=== PATIENT | male | born 1955 | race Hispanic/Latino ===

== ENCOUNTER 2017-05-18 10:23 | Inpatient (IN) | payer MEDICARE ==
[~2017-05-18] VITALS: Ht 172.7 cm; Wt 80.7 kg
[~2017-05-18 10:23] MED LIST: CHOL200074 PO; FOLI0.8T7 PO; GLIM4TAB3 PO; SEVE800T7 PO
[2017-05-18 10:45] LABS: BASOPHILS % (AUTO) 0.5 % (0.0-5.0); EOSINOPHILS % (AUTO) 0.1 % (0.0-8.0); HEMATOCRIT 27.5 % (42-54); LYMPHOCYTES % (AUTO) 2.9 % (21.0-51.0); MEAN CORPUSCULAR HGB CONC 33.3 g/dL (32.0-36.0); MEAN CORPUSCULAR VOLUME 102.2 fL (79-99); MONOCYTES % (AUTO) 4.3 % (3.0-13.0); NEUTROPHILS % (AUTO) 92.2 % (40.0-77.0); NUCLEATED RED BLOOD CELLS 0.1 % (0.0-0.19); PLATELET COUNT (AUTO) 240 K/uL (130-400); RED BLOOD CELL COUNT(AUTO) 2.69 MIL/uL (4.50-6.20); RED CELL DISTRIBUTION WIDTH 20.3 % (11.0-15.5); WHITE BLOOD COUNT (AUTO) 10.8 K/uL (4.8-10.8)
[2017-05-18 11:09] LABS: ALBUMIN 3.3 g/dL (3.5-5.0); BILIRUBIN,TOTAL 0.5 mg/dL (0.2-1.0); CREATINE KINASE MB 2.2 ng/mL (0.5-3.6); TOTAL PROTEIN, SERUM 7.1 g/dL (6.0-8.3)
[2017-05-18 11:18] LABS: CREATININE 8.3 mg/dL (0.5-1.5)
[2017-05-18] MEDS ORDERED: LEVOFLOXACIN 500 MG/D5W 100 ML 100 ML ONE (11:21)
[2017-05-18] MEDS ORDERED: IPRATROPIUM/ALBUTEROL SULFATE 3 ML SOLUTION IH ONE (11:32)
[2017-05-18 12:03] LABS: B-TYPE NATRIURETIC PEPTIDE 1570 pg/mL (0-100)
[2017-05-18 12:16] LABS: INR 1.02 (0.85-1.15); PARTIAL THROMBOPLASTIN TIME 21.5 SEC (26.3-35.5); PROTHROMBIN TIME 10.7 SEC (9.6-11.6)
[2017-05-18] MEDS ORDERED: METHYLPREDNISOLONE SOD SUCC 40MG/ML 1ML ONE (13:26)
[2017-05-18] MEDS ORDERED: CEFTRIAXONE SODIUM 1 GM ONE (13:26)
[2017-05-18 14:03] LABS: ABG BASE EXCESS -3.3 mmol/L (-2.0-3.0); ABG HCO3 24.2 mmol/L (21.0-28.0); ABG PCO2 53 mmHg (35-48)
[2017-05-18 14:15] VITALS: BP 133/76
[2017-05-18] MEDS ORDERED: CARV3.12 PO (14:16)
[2017-05-18] MEDS ORDERED: AMLO10TA2 PO (14:16)
[2017-05-18] MEDS ORDERED: GLIM4TAB3 PO (14:16)
[2017-05-18] MEDS ORDERED: FOLI1TAB61 PO (14:16)
[2017-05-18] MEDS ORDERED: SUCR500T PO (14:16)
[2017-05-18] MEDS: AZITHROMYCIN 500MG+NS 250ML 250 ML IV SCH (14:50)
[2017-05-18 16:00] VITALS: BP 120/64
[2017-05-18] MEDS: INSULIN HUMULIN R 100 UNIT/ML 3ML SQ SCH (16:18)
[2017-05-18] MEDS: IPRATROPIUM/ALBUTEROL SULFATE 3 ML SOLUTION IH SCH ×2 (18:43→23:50)
[2017-05-18] MEDS ORDERED: 0.9% SODIUM CHLORIDE 250 ML IV BAG IV PRN (18:45)
[2017-05-18] MEDS ORDERED: SODIUM CHLORIDE 0.9% 1000ML 1,000 ML IV PRN (18:45)
[2017-05-18] MEDS ORDERED: ALBUMIN (HUMAN) 25% 100 ML IV PRN (18:45)
[2017-05-18 20:12] VITALS: BP 148/78
[2017-05-19 00:05] VITALS: BP 142/72
[2017-05-19] MEDS: METHYLPREDNISOLONE SOD SUCC 40MG/ML 1ML IVP SCH ×5 (00:21→21:40)
[2017-05-19] MEDS: INSULIN HUMULIN R 100 UNIT/ML 3ML SQ SCH ×5 (00:23→21:41)
[2017-05-19 03:38] VITALS: BP 131/64
[2017-05-19 03:55] LABS: BASOPHILS % (AUTO) 0.1 % (0.0-5.0); HEMATOCRIT 23.8 % (42-54); LYMPHOCYTES % (AUTO) 2.5 % (21.0-51.0); MEAN CORPUSCULAR HEMOGLOBIN 36.6 pg (27.0-33.0); MEAN CORPUSCULAR HGB CONC 35.8 g/dL (32.0-36.0); MONOCYTES % (AUTO) 1.5 % (3.0-13.0); NEUTROPHILS % (AUTO) 95.9 % (40.0-77.0); PLATELET COUNT (AUTO) 193 K/uL (130-400); RED BLOOD CELL COUNT(AUTO) 2.34 MIL/uL (4.50-6.20); RED CELL DISTRIBUTION WIDTH 20.1 % (11.0-15.5); WHITE BLOOD COUNT (AUTO) 7.7 K/uL (4.8-10.8)
[2017-05-19 04:06] LABS: CREATININE 5.1 mg/dL (0.5-1.5); PHOSPHORUS 5.9 mg/dL (2.5-4.9); POTASSIUM 3.7 mmol/L (3.5-5.1)
[2017-05-19] MEDS: IPRATROPIUM/ALBUTEROL SULFATE 3 ML SOLUTION IH SCH ×3 (05:47→23:49)
[2017-05-19 07:00] VITALS: BP 107/54
[2017-05-19] MEDS: FOLIC ACID/VITAMIN B COMP W-C 1 MG CAPSULE PO SCH (07:50)
[2017-05-19] MEDS: OSELTAMIVIR PHOSPHATE 75 MG CAP PO SCH (07:50)
[2017-05-19 11:00] VITALS: BP 143/79
[2017-05-19] MEDS ORDERED: EPOETIN ALFA 10,000 UNIT/ML VIAL SQ SCH (12:30)
[2017-05-19] MEDS: CEFTRIAXONE SODIUM 1 GM IVP SCH (13:12)
[2017-05-19] MEDS: LEVOFLOXACIN 500 MG/D5W 100 ML 100 ML IV SCH (13:12)
[2017-05-19] MEDS: AZITHROMYCIN 500MG+NS 250ML 250 ML IV SCH (15:02)
[2017-05-19 16:00] VITALS: BP 116/57
[2017-05-19] MEDS: SEVELAMER HCL 800 MG TABLET PO SCH (16:09)
[2017-05-19 19:34] VITALS: BP 116/63
[2017-05-20 00:09] VITALS: BP 146/71
[2017-05-20 03:32] LABS: HEMATOCRIT 24.8 % (42-54); MEAN CORPUSCULAR HEMOGLOBIN 35.5 pg (27.0-33.0); MEAN CORPUSCULAR HGB CONC 34.8 g/dL (32.0-36.0); MEAN CORPUSCULAR VOLUME 101.8 fL (79-99); PLATELET COUNT (AUTO) 188 K/uL (130-400); RED BLOOD CELL COUNT(AUTO) 2.44 MIL/uL (4.50-6.20); RED CELL DISTRIBUTION WIDTH 20.8 % (11.0-15.5); WHITE BLOOD COUNT (AUTO) 6.3 K/uL (4.8-10.8)
[2017-05-20 03:56] VITALS: BP 141/74
[2017-05-20 04:03] LABS: CREATININE 7.8 mg/dL (0.5-1.5); PHOSPHORUS 6.8 mg/dL (2.5-4.9); POTASSIUM 3.9 mmol/L (3.5-5.1)
[2017-05-20] MEDS: METHYLPREDNISOLONE SOD SUCC 40MG/ML 1ML IVP SCH ×3 (04:06→14:00)
[2017-05-20] MEDS: IPRATROPIUM/ALBUTEROL SULFATE 3 ML SOLUTION IH SCH ×2 (06:10→11:02)
[2017-05-20] MEDS: INSULIN HUMULIN R 100 UNIT/ML 3ML SQ SCH ×3 (06:26→16:30)
[2017-05-20 07:00] VITALS: BP 125/59
[2017-05-20] MEDS: OSELTAMIVIR PHOSPHATE 75 MG CAP PO SCH (08:36)
[2017-05-20] MEDS: SEVELAMER HCL 800 MG TABLET PO SCH ×3 (08:36→17:00)
[2017-05-20] MEDS: FOLIC ACID/VITAMIN B COMP W-C 1 MG CAPSULE PO SCH (08:36)
[2017-05-20 11:00] VITALS: BP 132/66
[2017-05-20] MEDS: LEVOFLOXACIN 500 MG/D5W 100 ML 100 ML IV SCH (12:00)
[2017-05-20] MEDS: CEFTRIAXONE SODIUM 1 GM IVP SCH (13:00)
[2017-05-20] MEDS: AZITHROMYCIN 500MG+NS 250ML 250 ML IV SCH (15:00)
[2017-05-20 16:00] VITALS: BP 134/84
== END 2017-05-20 18:38 | disposition home or self-care (01) | DRG 193 ==
LOC: EDH 10:23 → EDHIP 12:30 → 2AH 14:21
PROVIDERS: ADMIT Family Medicine; ATTEND Family Medicine
PROC: 5A09357 Assistance with Respiratory Ventilation, Less than 24 Consecutive Hours, Continuous Positive Airway Pressure (ICD-10-PCS; principal; 2017-05-18)
PROC: 5A1D70Z Performance of Urinary Filtration, Intermittent, Less than 6 Hours Per Day (ICD-10-PCS; 2017-05-18)
PROC: 5A1D70Z Performance of Urinary Filtration, Intermittent, Less than 6 Hours Per Day (ICD-10-PCS; 2017-05-20)
DX: J18.9 Pneumonia, unspecified organism (principal); J96.21 Acute and chronic respiratory failure with hypoxia; E11.21 Type 2 diabetes mellitus with diabetic nephropathy; E11.51 Type 2 diabetes mellitus with diabetic peripheral angiopathy without gangrene; R18.8 Other ascites; I12.0 Hypertensive chronic kidney disease with stage 5 chronic kidney disease or end stage renal disease; E87.70 Fluid overload, unspecified; N18.6 End stage renal disease; J96.22 Acute and chronic respiratory failure with hypercapnia; D64.9 Anemia, unspecified; E11.22 Type 2 diabetes mellitus with diabetic chronic kidney disease; E78.5 Hyperlipidemia, unspecified; F79 Unspecified intellectual disabilities; Z95.5 Presence of coronary angioplasty implant and graft; Z99.2 Dependence on renal dialysis; D72.829 Elevated white blood cell count, unspecified
CPT/HCPCS: 36415; 36600; 71045; 76700; 80048; 80053; 82550; 82553; 82803; 82948; 83605; 83735; 83880; 84100; 84484; 85025; 85027; 85610; 85730; 87040; 90935; 92610; 93005; 94010; 94640; 94660; 94664; 99291; A4218; J0456; J0696; J0885; J1815; J1956; J2920; J7030

== ENCOUNTER → 2018-01-06 | Outpatient (CLI) | payer MEDICARE ==
[~2018-01-06] MED LIST changes: +AMLO10TA6 PO; +CARV3.12 PO; -SEVE800T7 PO; +SUCR500T PO
== END | disposition home or self-care (01) ==
LOC: RAH 09:30
PROVIDERS: ATTEND Family Medicine
DX: I35.1 Nonrheumatic aortic (valve) insufficiency (principal); I51.7 Cardiomegaly
CPT/HCPCS: 93306

== ENCOUNTER 2018-01-22 06:29 | Day surgery (SDC) | payer MEDICARE ==
[2018-01-21 16:11] VITALS: BP 123/57
[2018-01-21 16:24] LABS: CREATININE 6.6 mg/dL (0.5-1.5); POTASSIUM 4.3 mmol/L (3.5-5.1)
[~2018-01-22] VITALS: Ht 172.7 cm; Wt 83.1 kg
[2018-01-22] VITALS (13 sets, daily range): BP systolic 93–128; BP diastolic 45–70
[~2018-01-22 06:29] MED LIST changes: +CEFAZOLIN SODIUM 1 GM VIAL IVP SCH; -GLIM4TAB3 PO; +GLIP5TAB11 PO
[2018-01-22] MEDS ORDERED: SODIUM CHLORIDE 0.9% 1000ML 1,000 ML IV ONE (06:52)
[2018-01-22] MEDS ORDERED: PROPOFOL 10 MG/ML 20ML VIAL IV ONE (08:24)
[2018-01-22] MEDS ORDERED: DEXAMETHASONE SOD PHOSPHATE 10MG/ML 1ML VIAL ONE (08:24)
[2018-01-22] MEDS ORDERED: ONDANSETRON HCL 4 MG/2 ML VIAL ONE (08:24)
[2018-01-22] MEDS ORDERED: MIDAZOLAM HCL 1 MG/ML 2ML VIAL ONE (08:24)
[2018-01-22] MEDS ORDERED: LIDOCAINE PF 2% 5ML ABBOJECT ONE (08:24)
[2018-01-22] MEDS ORDERED: FENTANYL CITRATE PF 50 MCG/1 ML 2ML VIAL ONE (08:25)
[2018-01-22] MEDS ORDERED: SUCCINYLCHOLINE CHLORIDE 20 MG/ML 10 ML VIAL ONE (08:31)
[2018-01-22] MEDS ORDERED: EPHEDRINE SULFATE 50 MG/ML AMPULE ONE (08:50)
[2018-01-22] MEDS ORDERED: NEOSTIGMINE 5MG/5ML SYR IV ONE (09:30)
[2018-01-22] MEDS ORDERED: GLYCOPYRROLATE 1 MG/5 ML SYRINGE ONE (09:30)
[2018-01-22] MEDS ORDERED: CEPH500B PO (09:45)
[2018-01-22] MEDS ORDERED: TYL3 PO (09:45)
[2018-01-22] MEDS ORDERED: MEPERIDINE-PF 25 MG/ML SYG ONE (10:13)
== END 2018-01-22 11:20 | disposition home or self-care (01) ==
LOC: DAH 06:29
PROVIDERS: ATTEND Orthopaedic Surgery
DX: M23.203 Derangement of unspecified medial meniscus due to old tear or injury, right knee (principal); Z79.899 Other long term (current) drug therapy; E11.22 Type 2 diabetes mellitus with diabetic chronic kidney disease; N18.9 Chronic kidney disease, unspecified; E78.5 Hyperlipidemia, unspecified; Z98.890 Other specified postprocedural states; Z83.3 Family history of diabetes mellitus; Z82.49 Family history of ischemic heart disease and other diseases of the circulatory system; G89.29 Other chronic pain; I13.0 Hypertensive heart and chronic kidney disease with heart failure and stage 1 through stage 4 chronic kidney disease, or unspecified chronic kidney disease; I50.9 Heart failure, unspecified; M19.90 Unspecified osteoarthritis, unspecified site; E66.9 Obesity, unspecified
CPT/HCPCS: 29881; 36415; 80048; 82948 ×2; A4606; A4649 ×2; A4930; A6223; J0330; J0690; J1100; J2001; J2175; J2250; J2405; J2704; J2710; J3010; J3490 ×2; J7030

== ENCOUNTER 2018-08-30 19:24 | Inpatient (IN) | payer MEDICARE ==
[~2018-08-30] VITALS: Ht 172.7 cm; Wt 77.4 kg
[~2018-08-30 19:24] MED LIST changes: -AMLO10TA6 PO; +AMLO10TA7 PO; -CEFAZOLIN SODIUM 1 GM VIAL IVP SCH; +TRAM50TA4 PO
[2018-08-30 19:41] LABS: BASOPHILS % (AUTO) 0.6 % (0.0-5.0); EOSINOPHILS % (AUTO) 0.4 % (0.0-8.0); HEMATOCRIT 29.8 % (42-54); LYMPHOCYTES % (AUTO) 1.5 % (21.0-51.0); MEAN CORPUSCULAR HEMOGLOBIN 29.9 pg (27.0-33.0); MEAN CORPUSCULAR HGB CONC 32.4 g/dL (32.0-36.0); MEAN CORPUSCULAR VOLUME 92.4 fL (79-99); MONOCYTES % (AUTO) 3.2 % (3.0-13.0); NEUTROPHILS % (AUTO) 94.3 % (40.0-77.0); PLATELET COUNT (AUTO) 243 K/uL (130-400); RED BLOOD CELL COUNT(AUTO) 3.23 MIL/uL (4.50-6.20); RED CELL DISTRIBUTION WIDTH 17.3 % (11.0-15.5); WHITE BLOOD COUNT (AUTO) 15.2 K/uL (4.8-10.8)
[2018-08-30] MEDS ORDERED: ACETAMINOPHEN ELIXIR 650 MG/20.3 ML UDCUP ONE (19:44)
[2018-08-30] MEDS ORDERED: SODIUM CHLORIDE 0.9% 500ML 500 ML IV ONE (19:45)
[2018-08-30 19:53] LABS: INR 1.01 (0.85-1.15); PARTIAL THROMBOPLASTIN TIME 29.6 SEC (26.3-35.5); PROTHROMBIN TIME 10.6 SEC (9.6-11.6)
[2018-08-30 20:00] LABS: CARBON DIOXIDE 32 mmol/L (21-32); CHLORIDE 100 mmol/L (101-111); CREATININE 3.9 mg/dL (0.5-1.5); GLOMERULAR FILTR. RATE CALC 17 mL/min (>60); GLUCOSE,RANDOM 234 mg/dL (70-105); POTASSIUM 3.6 mmol/L (3.5-5.1); SODIUM SERUM 139 mmol/L (136-145); UREA NITROGEN, BLOOD 18 mg/dL (7-18)
[2018-08-30 20:09] LABS: RAPID GROUP A STREP NEGATIVE (NEGATIVE)
[2018-08-30] MEDS ORDERED: VANCOMYCIN 1GM+NS 250ML 250 ML IV ONE (20:18)
[2018-08-30 20:20] LABS: ALANINE AMINOTRANSFERASE 20 U/L (12-78); ALBUMIN 3.2 g/dL (3.5-5.0); ASPARTATE AMINOTRANSFERASE 21 U/L (10-37); BILIRUBIN,TOTAL 0.4 mg/dL (0.2-1.0); CREATINE KINASE, TOTAL 67 U/L (21-232); MYOGLOBIN 421 ng/mL (10-92); TOTAL PROTEIN, SERUM 7.1 g/dL (6.0-8.3); TROPONIN I < 0.04 ng/mL (0.00-0.06)
[2018-08-30 21:28] LABS: APPEARANCE,URINE CLOUDY (CLEAR); BILIRUBIN,URINE NEGATIVE (NEGATIVE); COLOR,URINE YELLOW (YELLOW); GLUCOSE, URINE (UA) 250 mg/dL (NEGATIVE); KETONES,URINE NEGATIVE (NEGATIVE); LEUKOCYTE ESTERASE ,URINE MODERATE (NEGATIVE); NITRATE,URINE NEGATIVE (NEGATIVE); OCCULT BLOOD,URINE LARGE (NEGATIVE); PH,URINE 8.5 (5.0-8.0); PROTEIN,URINE 100 mg/dL (NEGATIVE); UROBILINOGEN,URINE 0.2 mg/dL (0.2-1.0)
[2018-08-30 21:35] LABS: RBC,URINE >100 /HPF (0-1)
[2018-08-30 21:36] LABS: BACTERIA,URINE Rare /HPF (None Seen); SQUAMOUS EPITHELIAL CELL,UR Rare /HPF (0-2)
[2018-08-30] MEDS ORDERED: CEFTRIAXONE SODIUM 1 GM ONE (23:55)
[2018-08-31] VITALS (7 sets, daily range): BP systolic 124–137; BP diastolic 59–80
[2018-08-31] MEDS ORDERED: ACETAMINOPHEN 325 MG TAB PO PRN ×2 (01:45→02:00)
[2018-08-31] MEDS ORDERED: VANCOMYCIN PROTOCOL PER PHARMACY IV SCH ×2 (01:45→09:00)
[2018-08-31] MEDS ORDERED: ONDANSETRON HCL 4 MG/2 ML VIAL IVP PRN ×2 (01:45→02:00)
[2018-08-31] MEDS ORDERED: ZOSYN 3.375GM+NS 50ML 50 ML IV SCH ×2 (02:00→03:00)
[2018-08-31 03:40] LABS: MEAN CORPUSCULAR HEMOGLOBIN 30.3 pg (27.0-33.0); MEAN CORPUSCULAR HGB CONC 32.9 g/dL (32.0-36.0); PLATELET COUNT (AUTO) 209 K/uL (130-400); RED BLOOD CELL COUNT(AUTO) 3.04 MIL/uL (4.50-6.20); RED CELL DISTRIBUTION WIDTH 17.1 % (11.0-15.5); WHITE BLOOD COUNT (AUTO) 10.3 K/uL (4.8-10.8)
[2018-08-31 04:00] LABS: ALBUMIN 2.6 g/dL (3.5-5.0); BILIRUBIN,TOTAL 0.4 mg/dL (0.2-1.0); CREATININE 4.8 mg/dL (0.5-1.5); MAGNESIUM 1.9 mg/dL (1.80-2.40); POTASSIUM 3.4 mmol/L (3.5-5.1); TOTAL PROTEIN, SERUM 6.3 g/dL (6.0-8.3)
[2018-08-31] MEDS ORDERED: PANTOPRAZOLE 40 MG/VIAL IVP SCH ×2 (09:00)
[2018-08-31] MEDS: PANTOPRAZOLE SODIUM 40 MG TABLET.DR PO SCH (09:04)
[2018-08-31] MEDS: ZOSYN 3.375GM+NS 50ML 50 ML IV SCH ×2 (09:04→20:30)
--- NOTE | 2018-08-31 13:49 | NUR ---
DC PLAN VISITED WITH PATIENT. IN ROOM. PER SISTER PATIENT LIVES WITH HER. PATIENT DISABLED. PATIENT HAS WALKER W/SEAT, SHOWER CHAIR, 02 BUT DOES NOT USE. FEELS SAFE TO RETURN HOME. PER SISTER PATIENT IN HOSPITAL 10 DAYS THEN AT [facility] FOR 21 NEEDED 60 DAYS OF WELLNESS IF NEEDS TO GO TO FACILITY AGAIN. PREFERS TO GO HOME. Addendum: 08/31/18 at 1352 by CELINA EGAN RN CM Amended: Links added.
[2018-08-31] MEDS ORDERED: DEXTROSE 50%-WATER 50 ML DISP.SYRIN IV PRN (15:00)
[2018-08-31] MEDS ORDERED: GLUCAGON 1MG KIT 1 MG ML IM PRN (15:00)
[2018-08-31] MEDS: INSULIN HUMULIN R 100 UNIT/ML 3ML SQ SCH ×2 (16:15→21:00)
[2018-08-31] MEDS ORDERED: ATOR40TA71 PO (16:19)
[2018-08-31] MEDS ORDERED: ASPI-555 PO (16:19)
[2018-08-31] MEDS ORDERED: BACL10TA PO (16:19)
[2018-08-31] MEDS ORDERED: CLOP75TA32 PO (16:19)
[2018-09-01 03:47] VITALS: BP 126/68
[2018-09-01 03:49] LABS: HEMATOCRIT 28.3 % (42-54); MEAN CORPUSCULAR HEMOGLOBIN 30.5 pg (27.0-33.0); MEAN CORPUSCULAR HGB CONC 32.7 g/dL (32.0-36.0); MEAN CORPUSCULAR VOLUME 93.4 fL (79-99); NUCLEATED RED BLOOD CELLS 0.1 % (0.0-0.19); PLATELET COUNT (AUTO) 192 K/uL (130-400); RED BLOOD CELL COUNT(AUTO) 3.03 MIL/uL (4.50-6.20); WHITE BLOOD COUNT (AUTO) 7.7 K/uL (4.8-10.8)
[2018-09-01 04:01] LABS: CREATININE 6.6 mg/dL (0.5-1.5); POTASSIUM 3.8 mmol/L (3.5-5.1)
[2018-09-01] MEDS: INSULIN HUMULIN R 100 UNIT/ML 3ML SQ SCH ×4 (06:14→21:00)
[2018-09-01] MEDS: PANTOPRAZOLE SODIUM 40 MG TABLET.DR PO SCH (06:44)
[2018-09-01 08:00] VITALS: BP 125/58
[2018-09-01] MEDS: ZOSYN 3.375GM+NS 50ML 50 ML IV SCH ×2 (08:44→22:46)
[2018-09-01 11:54] VITALS: BP 138/69
[2018-09-01 16:00] VITALS: BP 131/67
[2018-09-01] MEDS ORDERED: EPOETIN ALFA 10,000 UNIT/ML VIAL SQ SCH (19:30)
[2018-09-01 20:41] VITALS: BP 134/55
[2018-09-01] MEDS ORDERED: VANCOMYCIN 1GM+NS 250ML 250 ML IV SCH (21:00)
[2018-09-02 00:14] VITALS: BP 140/77
[2018-09-02 03:34] LABS: EOSINOPHILS % (AUTO) 3.4 % (0.0-8.0); HEMATOCRIT 26.8 % (42-54); LYMPHOCYTES % (AUTO) 8.1 % (21.0-51.0); MEAN CORPUSCULAR HEMOGLOBIN 29.4 pg (27.0-33.0); MEAN CORPUSCULAR HGB CONC 32.2 g/dL (32.0-36.0); MEAN CORPUSCULAR VOLUME 91.3 fL (79-99); MONOCYTES % (AUTO) 5.3 % (3.0-13.0); NEUTROPHILS % (AUTO) 82.2 % (40.0-77.0); PLATELET COUNT (AUTO) 194 K/uL (130-400); RED BLOOD CELL COUNT(AUTO) 2.93 MIL/uL (4.50-6.20); RED CELL DISTRIBUTION WIDTH 16.7 % (11.0-15.5); WHITE BLOOD COUNT (AUTO) 4.9 K/uL (4.8-10.8)
[2018-09-02 03:52] LABS: CREATININE 4.8 mg/dL (0.5-1.5); POTASSIUM 3.8 mmol/L (3.5-5.1)
[2018-09-02 04:36] VITALS: BP 140/78
[2018-09-02] MEDS: INSULIN HUMULIN R 100 UNIT/ML 3ML SQ SCH ×4 (05:48→21:06)
[2018-09-02 07:20] VITALS: BP 122/60
--- NOTE | 2018-09-02 08:00 | NUR ---
AM ASSESSMENT PT LAYING IN BED, HOB ELEVATED 30 DEGREES, RESTING. ORIENTED TO SELF. FOLLOW COMMANDS. NO SOB. NO DISTRESS NOTED. NO PAIN, NO DISCOMFORT NOTED. BEDREST, OOB TO CHAIR. INSTRUCTED TO CALL FOR ASSISTANCE. CALL AMINA W/IN REACH.
[2018-09-02] MEDS: PANTOPRAZOLE SODIUM 40 MG TABLET.DR PO SCH (08:01)
[2018-09-02] MEDS: ZOSYN 3.375GM+NS 50ML 50 ML IV SCH ×2 (08:01→20:07)
[2018-09-02 08:17] LABS: HEPATITIS A ANTIBODY IGM Negative (Negative); HEPATITIS B CORE IGM Negative (Negative); HEPATITIS Bs ANTIGEN SCREEN P Negative (Negative)
[2018-09-02 11:11] VITALS: BP 137/50
[2018-09-02 15:52] VITALS: BP 136/67
[2018-09-02 19:48] VITALS: BP 139/57
[2018-09-03] VITALS: BP 154/66
[2018-09-03 04:00] VITALS: BP 145/73
[2018-09-03] MEDS: INSULIN HUMULIN R 100 UNIT/ML 3ML SQ SCH ×2 (05:56→11:30)
[2018-09-03 07:40] VITALS: BP 148/74
[2018-09-03] MEDS ORDERED: SODIUM CHLORIDE 0.9% 1000ML 1,000 ML IV ONE (09:56)
--- NOTE | 2018-09-03 10:30 | NUR ---
HEMODIALYSIS HD COMPLETE. 3 HRS OF HD RECEIVED. TOLERATED WELL. V/S WNL. 2 LITERS REMOVED.
[2018-09-03] MEDS: ZOSYN 3.375GM+NS 50ML 50 ML IV SCH (11:20)
[2018-09-03] MEDS: PANTOPRAZOLE SODIUM 40 MG TABLET.DR PO SCH (11:20)
[2018-09-03 11:26] VITALS: BP 139/69
[2018-09-03] MEDS ORDERED: LEVO500T2 PO (13:55)
[2018-09-03] MEDS ORDERED: CLIN300C9 PO (13:56)
--- NOTE | 2018-09-03 14:26 | NUR ---
DISCHARGE TELE TA REMOVED @ THIS TIME.
--- NOTE | 2018-09-03 15:00 | NUR ---
DISCHARGE PT'S SISTER, VERONICA ARAYA, HERE TO TAKE PT HOME. VERBAL & WRITTEN DISCHARGE INSTRUCTIONS REVIEWED & GIVEN TO SISTER. QUESTIONS ENCOURAGED & CLARIFIED. PROPER CARE & MGT OF PNA REVIEWED. NEW PRESCRIBED MEDICATIONS REVIEWED. PRESCRIPTION GIVEN TO PT'S SISTER; SIGNED COPY PLACED IN CHART. IV DISCONTINUED. PT'S SISTER TO GATHER PT'S PERSONAL BELONGINGS. WILL NOTIFY STAFF WHEN READY TO BE TAKEN HOME.
--- NOTE | 2018-09-03 15:20 | NUR ---
DISCHARGE PT TAAKEN TO PRIVATE VEHICLE VIA WC BY Juwan MARCELO PCP, ACCOMPANIED BY SISTER BHARTI ARAYA. NO DISTRESS NOTED.
== END 2018-09-03 15:20 | disposition home or self-care (01) | DRG 871 ==
LOC: EDH 19:24 → EDHIP 23:42 → 2AH 08-31 01:03
PROVIDERS: ADMIT Internal Medicine Nephrology; ATTEND Internal Medicine Nephrology
PROC: 5A1D70Z Performance of Urinary Filtration, Intermittent, Less than 6 Hours Per Day (ICD-10-PCS; principal; 2018-09-01)
PROC: 5A1D70Z Performance of Urinary Filtration, Intermittent, Less than 6 Hours Per Day (ICD-10-PCS; 2018-09-03)
DX: A41.9 Sepsis, unspecified organism (principal); N18.6 End stage renal disease; J18.9 Pneumonia, unspecified organism; I12.0 Hypertensive chronic kidney disease with stage 5 chronic kidney disease or end stage renal disease; M86.9 Osteomyelitis, unspecified; L03.115 Cellulitis of right lower limb; E11.22 Type 2 diabetes mellitus with diabetic chronic kidney disease; E11.621 Type 2 diabetes mellitus with foot ulcer; L97.519 Non-pressure chronic ulcer of other part of right foot with unspecified severity; D64.9 Anemia, unspecified; D89.9 Disorder involving the immune mechanism, unspecified; E11.21 Type 2 diabetes mellitus with diabetic nephropathy; E11.51 Type 2 diabetes mellitus with diabetic peripheral angiopathy without gangrene; B95.62 Methicillin resistant Staphylococcus aureus infection as the cause of diseases classified elsewhere; E11.69 Type 2 diabetes mellitus with other specified complication; E78.5 Hyperlipidemia, unspecified; E87.6 Hypokalemia; F79 Unspecified intellectual disabilities; L97.529 Non-pressure chronic ulcer of other part of left foot with unspecified severity; M19.079 Primary osteoarthritis, unspecified ankle and foot; Z79.4 Long term (current) use of insulin; Z79.899 Other long term (current) drug therapy; Z99.2 Dependence on renal dialysis; Z89.421 Acquired absence of other right toe(s)
CPT/HCPCS: 36415; 71045; 73630; 80048; 80053; 80074; 81001; 82550; 82948; 83605; 83735; 83874; 84100; 84484; 85025; 85027; 85610; 85730; 87040; 87070; 87076; 87077; 87088; 87186; 87205; 87804; 87880; 90935; 93005; 97039; 99291; C9113; G0378; J0696; J0885; J1815; J2405; J2543; J3370; J7030; J7040